=== PATIENT | male | born 1935 | race Caucasian/White ===

== ENCOUNTER 2022-08-01 14:00 | Observation (INO) | payer MEDICARE, SELFPAY ==
[2022-08-01 14:32] VITALS: BP 123/44; PULSE 86; RESP 18; TEMP 36.7; O2SAT 98; BMI 29.4
--- NOTE | 2022-08-01 14:51 | XR_ITS ---
PROCEDURE INFORMATION: Exam: XR Left Shoulder Exam date and time: 08/01/2022 2:53 PM Age: 86 years old Clinical indication: Injury or trauma; Fall; Blunt trauma (contusions or hematomas); Shoulder; Left TECHNIQUE: Imaging protocol: Radiologic exam of the Left shoulder. Views: 2 or more views. COMPARISON: No relevant prior studies available. FINDINGS: Bones/joints: No acute cortical disruption identified. No fracture line identified. Elevation of humerus. Degenerative changes of the acromioclavicular and glenohumeral joints. Bony density normal. Soft tissues: Normal. Other findings: Visualized thorax unremarkable. IMPRESSION: No acute radiographic osseous findings. Elevated humerus. Query symptoms of rotator cuff tear.
--- NOTE | 2022-08-01 14:51 | XR_ITS ---
PROCEDURE INFORMATION: Exam: XR Left Hip Exam date and time: 08/01/2022 2:50 PM Age: 86 years old Clinical indication: Injury or trauma; Fall; Blunt trauma (contusions or hematomas); Left; Hip TECHNIQUE: Imaging protocol: Radiologic exam of the Left hip. Views: 2 or 3 views hip with pelvis when performed. COMPARISON: No relevant prior studies available. FINDINGS: Bones/joints: U no fracture identified. Mild degenerative changes of both hips. [id number] degenerative changes in visualized sacroiliac joints. Soft tissues: Unremarkable. IMPRESSION: No acute findings. Degenerative changes.
[2022-08-01 15:11] VITALS: BP 130/52; PULSE 70; RESP 18; O2SAT 96
[2022-08-01 15:30] VITALS: BP 121/64; PULSE 70; RESP 18; O2SAT 95
--- NOTE | 2022-08-01 17:03 | CT_ITS ---
PROCEDURE INFORMATION: Exam: CT Abdomen And Pelvis Without Contrast Exam date and time: 08/01/2022 8:41 PM Age: 86 years old Clinical indication: Abdominal pain; Additional info: Pain , fall TECHNIQUE: Imaging protocol: Computed tomography of the abdomen and pelvis without contrast. Radiation optimization: All CT scans at this facility use at least one of these dose optimization techniques: automated exposure control; mA and/or kV adjustment per patient size (includes targeted exams where dose is matched to clinical indication); or iterative reconstruction. COMPARISON: CR XR HIP LT 2-3V W/PELVIS 08/01/2022 2:50 PM FINDINGS: Tubes, catheters and devices: None noted. Lungs: Lung bases appear clear. Heart: Pacemaker in good position. No significant coronary calcifications. No cardiomegaly. No significant pericardial effusion. Liver: Normal. No mass. Gallbladder and bile ducts: Normal. No calcified stones. No ductal dilation. Pancreas: Chronic pancreatitis. No ductal dilation. Spleen: Normal. No splenomegaly. Adrenal glands: Normal. No mass. Kidneys and ureters: Normal. No hydronephrosis. Stomach and bowel: Duodenal diverticulum. No obstruction. No mucosal thickening. Appendix: No evidence of appendicitis. Intraperitoneal space: Unremarkable. No free air. No significant fluid collection. Retroperitoneal space: No significant retroperitoneal inflammatory changes are noted. Vasculature: Unremarkable. No abdominal aortic aneurysm. Lymph nodes: Unremarkable. No enlarged lymph nodes. Urinary bladder: Unremarkable as visualized. Reproductive: Unremarkable as visualized. Bones/joints: Lumbar degenerative discs. No acute fracture. Soft tissues: Unremarkable. IMPRESSION: Chronic pancreatitis. Duodenal diverticulum.
--- NOTE | 2022-08-01 17:03 | CT_ITS ---
PROCEDURE INFORMATION: Exam: CT Head Without Contrast Exam date and time: 08/01/2022 8:32 PM Age: 86 years old Clinical indication: Injury or trauma; Fall TECHNIQUE: Imaging protocol: Computed tomography of the head without contrast. Radiation optimization: All CT scans at this facility use at least one of these dose optimization techniques: automated exposure control; mA and/or kV adjustment per patient size (includes targeted exams where dose is matched to clinical indication); or iterative reconstruction. COMPARISON: No relevant prior studies available. FINDINGS: Brain: Atrophy and chronic small vessel ischemic changes. No hemorrhage. No mass effect or midline shift. Chronic bilateral basal ganglia lacunar infarcts. Cerebral ventricles: No ventriculomegaly. Paranasal sinuses: Visualized sinuses are unremarkable. No fluid levels. Mastoid air cells: Visualized mastoid air cells are well aerated. Bones/joints: Chronic appearing left nasal bone fracture. No acute fracture. Soft tissues: Tiny metallic focus within the right cheek. IMPRESSION: Chronic changes in the brain but no acute intracranial abnormality.
--- NOTE | 2022-08-01 17:03 | CT_ITS ---
PROCEDURE INFORMATION: Exam: CT Chest Without Contrast; Diagnostic Exam date and time: 08/01/2022 8:39 PM Age: 86 years old Clinical indication: Injury or trauma; Fall; Additional info: Syncope, crackles TECHNIQUE: Imaging protocol: Diagnostic computed tomography of the chest without contrast. Radiation optimization: All CT scans at this facility use at least one of these dose optimization techniques: automated exposure control; mA and/or kV adjustment per patient size (includes targeted exams where dose is matched to clinical indication); or iterative reconstruction. COMPARISON: CT CERVICAL SPINE WO CON 08/01/2022 8:34 PM FINDINGS: Tubes, catheters and devices: Cardiac pacing device in the left chest wall. Lungs: Evaluation of the lungs is limited secondary to motion. Scattered ground-glass opacities. Pleural spaces: No pneumothorax. No pleural effusion. Heart: No cardiomegaly. No pericardial effusion. Coronary arteries: Coronary artery calcifications. Lymph nodes: No enlarged lymph nodes. Vasculature: Calcified atherosclerosis. No aneurysm. Gallbladder and bile ducts: Calcified gallstones. Pancreas: Pancreatic calcifications. Kidneys and ureters: Low-density right renal nodule measuring 15 mm. Bones/joints: Degenerative changes of the spine. No fracture. Median sternotomy wires. Soft tissues: Limited evaluation without contrast. No obvious soft tissue swelling. IMPRESSION: Evaluation of the lungs is limited secondary to motion. Scattered ground-glass opacities which may be hypoventilatory however pneumonitis or mild edema should be clinically excluded.
--- NOTE | 2022-08-01 17:03 | CT_ITS ---
PROCEDURE INFORMATION: Exam: CT Cervical Spine Without Contrast Exam date and time: 08/01/2022 8:34 PM Age: 86 years old Clinical indication: Pain; Other: Fall TECHNIQUE: Imaging protocol: Computed tomography of the cervical spine without contrast. Radiation optimization: All CT scans at this facility use at least one of these dose optimization techniques: automated exposure control; mA and/or kV adjustment per patient size (includes targeted exams where dose is matched to clinical indication); or iterative reconstruction. COMPARISON: CT HEAD/BRAIN WO CON 08/01/2022 8:32 PM FINDINGS: Bones/joints: No acute fracture. Normal alignment. Degenerative changes C2-C3: No significant disc protrusion. No severe spinal canal stenosis. No significant neural foraminal narrowing. C3-C4: No significant disc protrusion. No severe spinal canal stenosis. No significant neural foraminal narrowing. C4-C5: No significant disc protrusion. No severe spinal canal stenosis. No significant neural foraminal narrowing. C5-C6: No significant disc protrusion. No severe spinal canal stenosis. No significant neural foraminal narrowing. C6-C7: No significant disc protrusion. No severe spinal canal stenosis. No significant neural foraminal narrowing. C7-T1: No significant disc protrusion. No severe spinal canal stenosis. No significant neural foraminal narrowing. Lungs: Lung apices are normal. Soft tissues: Unremarkable. IMPRESSION: No acute traumatic findings.
--- NOTE | 2022-08-01 17:10 | ECG_ITS ---
APPROVED REPORT Exam: Resting ECG HR:69 bpm ECG Measurements Heart Rate 69 AXES WY 225 P 129 QRSd 157 QRS -47 QT 406 T 86 QTc 425 Conclusion ELECTRONIC ATRIAL PACEMAKER INTRAVENTRICULAR CONDUCTION DELAY [130+ ms QRS DURATION] LEFT VENTRICULAR HYPERTROPHY AND ST-T CHANGE [VOLTAGE CRITERIA PLUS ST/T ABNORMALITY] PROBABLE LATERAL MYOCARDIAL INFARCTION , OF INDETERMINATE AGE [35 ms Q WAVE IN I/aVL/V5/V6] ABNORMAL ECG UNCONFIRMED REPORT Electronically signed by : Kristian Dueñas MD 08/03/2022 20:20:55
--- NOTE | 2022-08-01 18:33 | HMH.EDGENADL ---
Discharge Plan Disposition Patient Disposition: Admitted as Observation Chief Complaint: Fall Clinical Impressions Clinical Impression: Syncope, Dementia, Fall, Abdominal pain, CRI (chronic renal insufficiency) Discharge ED Provider: Nacho Walls General Adult HPI <Tripp Rubi DO - Last Filed: 08/01/22 20:11> General Chief complaint: Fall Stated complaint: Fall@home 08/01 0100 LT shoulder/hip pain Time Seen by Provider: 08/01/22 16:30 Mode of Arrival: Ambulatory Source of Information: Patient and Spouse Limitations: No Limitations Description of Symptoms (Recalled from ER Triage Doc. by RN): c/o L shoulder/hip pain with abrasion on left shoulder/back. per family, pt was getting up after eating had explosive diarrhea, they put him in the shower, he had a second explosive diarrhea, the he got pale and fell down hitting his shower chair. Denies any loc or hitting his head. Son states that he caught his upper body and only his lower body hit the shower. History of Present Illness HPI narrative: 86yo M with past medical history of Alzheimer's, CAD status post CABG, pacemaker placement presents the emergency department secondary to syncopal event. Patient now lives with his family. Was eating breakfast and felt as though he had to use the restroom. Family reports he had explosive diarrhea on the way to the restroom. They placed him in the shower to clean him up he had another episode of explosive diarrhea. When drying him and moving about of the tub, he had a syncopal episode and was lowered to the ground by his family. No head strike or LOC. Patient does complain of feeling very weak and left shoulder pain from lying in the tub until additional family members were able to move him out of the tub, off of the floor. Related Data Home Medications Medication Instructions Recorded Confirmed apixaban 2.5 mg tablet (Eliquis) 2.5 mg PO BID Blood thinner 08/01/22 08/01/22 lansoprazole 30 mg capsule,delayed 30 mg PO DAILY GERD 08/01/22 08/01/22 release levothyroxine 50 mcg tablet 50 mcg PO DAILY thyorid 08/01/22 08/01/22 memantine 28 mg capsule 28 mg PO DAILY dementia 08/01/22 08/01/22 sprinkle,extended release 24hr olanzapine 5 mg tablet 5 mg PO HS mood 08/01/22 08/01/22 rosuvastatin 40 mg tablet 40 mg PO DAILY High cholesterol 08/01/22 08/01/22 sertraline 50 mg tablet 50 mg PO DAILY Depression 08/01/22 08/01/22 Allergies Allergy/AdvReac Type Severity Reaction Status Date / Time No Known Allergies Allergy Verified 08/01/22 14:50 PFSH <Tripp Rubi DO - Last Filed: 08/01/22 20:11> PFSH Disclaimer: The information contained in this section may have been updated after the patient was seen, as this information can be updated by other users. Social History (Updated 08/01/22 @ 20:11 by Tripp Rubi DO) Smoking Status: Former smoker alcohol intake: never current occupational status: previously employed Travel in the last 8 weeks: None <Tripp Rubi DO - Last Filed: 08/01/22 20:11> ROS Obtained: Yes Systems reviewed as appropriate & no additional complaints except as documented Physical Exam <Tripp Rubi DO - Last Filed: 08/01/22 20:11> General General appearance: alert and in no apparent distress Head Head exam: atraumatic Eye Eye exam: Present normal appearance Neck Neck exam: Present normal inspection, full ROM and trachea midline Chest Chest inspection: Present normal inspection Respiratory Respiratory exam: Present normal lung sounds bilaterally and other (Unilateral crackles); Absent respiratory distress Cardiovascular Cardiovascular exam: Present regular rate and normal rhythm Abdominal Exam Abdominal exam: Present soft and tenderness (Diffuse); Absent distention Back Exam Back exam: Present other (Abrasion left posterior shoulder) Neurological Exam Neurological exam: Present alert and CN II-XII intact Psychiatric Psychiatric exam: Present normal affect and normal mood Skin Skin exam: Pr
[2022-08-01 19:34] LABS: Coronavirus 19, PCR Not Detected (NotDetected); Influenza A, PCR Not Detected (NotDetected); Influenza B, PCR Not Detected (NotDetected)
--- NOTE | 2022-08-01 19:56 | PC.NURSE ---
Pt sitting up in wheelchair. Family at BS. No needs voiced at this time.
[2022-08-01 20:17] LABS: Basophils # 0.2 K/mm3 (0-0.2); Basophils % 1.2 % (0.1-2.0); Eosinophils # 0.2 K/mm3 (0.0-0.4); Eosinophils % 1.7 % (0.1-12.0); Hematocrit 33.8 % (42.0-52.0); Hemoglobin 10.8 g/dL (14.1-18.0); Lymphocytes # 2.6 K/mm3 (0.7-4.5); Lymphocytes % 18.7 % (10-50); Mean Corpuscular HGB Conc 32.1 g/dL (31.8-35.4); Mean Corpuscular Hemoglobin 29.9 pg (27.0-31.2); Mean Corpuscular Volume 92.9 fl (80-94); Mean Platelet Volume 9.7 fl (7.4-10.4); Monocytes # 0.9 K/mm3 (0.1-1.0); Monocytes % 6.6 % (1.7-9.3); Neutrophils # 9.9 K/mm3 (1.8-7.8); Neutrophils % 71.8 % (37.0-80.0); Platelet Count 220 K/mm3 (142-424); Red Blood Count 3.63 M/mm3 (4.60-6.20); Red Cell Distribution Width 16.3 % (11.5-17.5); White Blood Count 13.8 K/mm3 (4.8-10.8)
[2022-08-01 20:18] LABS: Potassium 5.5 mmoL/L (3.5-5.1); Sodium 143 mmol/L (136-145)
[2022-08-01 20:19] LABS: Chloride 111 mmol/L (98-107)
[2022-08-01 20:20] VITALS: BP 132/61; PULSE 57; O2SAT 95
[2022-08-01 20:20] LABS: Blood Urea Nitrogen 34 mg/dl (9-20); Creatinine Clearance Estimated 26 mL/min (50-200); Estimated Glomerular Filt Rate 22 ml/min (>60); GFR (African American) 26 ML/MIN (>60)
--- NOTE | 2022-08-01 20:20 | PC.NURSE ---
Pt advised he is still unable to provide a urine sample at this time.
[2022-08-01 20:21] LABS: Alanine Aminotransferase 19 U/L (12-78); Albumin Level 4.3 g/dl (3.5-5.0); Albumin/Globulin Ratio 1.4 (1.1-1.8); Alkaline Phosphatase 87 U/L (38-126); Anion Gap 15.5 mEq/L (5-15); Aspartate Amino Transferase 23 U/L (17-59); Bilirubin,Total 0.4 mg/dl (0.2-1.3); Calcium 8.4 mg/dl (8.4-10.2); Carbon Dioxide 22 mmol/L (22.0-30.0); Globulin 3.1 g/dL (1.3-3.2); Glucose 115 mg/dl (74-100); Total Protein,Serum 7.4 g/dl (6.3-8.2)
[2022-08-01 20:34] LABS: Troponin I < 0.01 ng/ml (0.00-0.034)
--- NOTE | 2022-08-01 22:26 | PC.NURSE ---
Pt attempted to give urine sample and was unable to
--- NOTE | 2022-08-01 22:45 | PC.NURSE ---
Dr. Walls at
--- NOTE | 2022-08-01 22:50 | PC.NURSE ---
Dr. Bueno at
--- NOTE | 2022-08-01 22:51 | PC.NURSE ---
Dr. Bueno pagefrances
--- NOTE | 2022-08-01 22:52 | PC.NURSE ---
Dr. Walls speaking with Dr. Bueno
--- NOTE | 2022-08-01 23:00 | PC.NURSE ---
left forearm iv infiltrated.
[2022-08-01 23:38] VITALS: BP 134/74; PULSE 68; RESP 18; TEMP 36.7; O2SAT 95
[2022-08-01 23:56] LABS: Troponin I < 0.01 ng/ml (0.00-0.034)
[2022-08-02] VITALS (9 sets, daily range): BP systolic 132–176; BP diastolic 49–72; PULSE 67–77; RESP 16–20; TEMP 36.5–37.3; O2SAT 92–96; BMI 28.9; BMI 28.8
--- NOTE | 2022-08-02 00:03 | PC.NURSE ---
Pt provided with more warm blankets
--- NOTE | 2022-08-02 00:16 | PC.NURSE ---
Pt arrived to floor via wheelchair @ 0014.
--- NOTE | 2022-08-02 05:17 | PC.NURSE ---
HAS RESTED WELL. FAMILY MEMBER JUST LEFT TO GO HOME. THERE HAS BEEN NO DIARRHEA SINCE ARRIVAL TO HOSPITAL. WEARS PULLUPS FOR INCONTINENCE B&B.
[2022-08-02 07:43] LABS: Basophils # 0.1 K/mm3 (0-0.2); Eosinophils # 0.6 K/mm3 (0.0-0.4); Eosinophils % 6.6 % (0.1-12.0); Hematocrit 30.7 % (42.0-52.0); Hemoglobin 9.8 g/dL (14.1-18.0); Lymphocytes # 2.6 K/mm3 (0.7-4.5); Lymphocytes % 26.1 % (10-50); Mean Corpuscular Hemoglobin 29.6 pg (27.0-31.2); Mean Corpuscular Volume 92.5 fl (80-94); Mean Platelet Volume 9.8 fl (7.4-10.4); Monocytes # 0.6 K/mm3 (0.1-1.0); Monocytes % 5.9 % (1.7-9.3); Neutrophils # 5.9 K/mm3 (1.8-7.8); Neutrophils % 60.5 % (37.0-80.0); Platelet Count 209 K/mm3 (142-424); Red Blood Count 3.31 M/mm3 (4.60-6.20); Red Cell Distribution Width 16.2 % (11.5-17.5); White Blood Count 9.8 K/mm3 (4.8-10.8)
[2022-08-02 07:54] LABS: Anion Gap 11.5 mEq/L (5-15); Blood Urea Nitrogen 34 mg/dl (9-20); Calcium 7.9 mg/dl (8.4-10.2); Carbon Dioxide 20 mmol/L (22.0-30.0); Chloride 114 mmol/L (98-107); Creatinine Clearance Estimated 31 mL/min (50-200); Estimated Glomerular Filt Rate 27 ml/min (>60); GFR (African American) 33 ML/MIN (>60); Glucose 89 mg/dl (74-100); Potassium 4.5 mmoL/L (3.5-5.1); Sodium 141 mmol/L (136-145)
[2022-08-02 08:17] LABS: Troponin I < 0.01 ng/ml (0.00-0.034)
--- NOTE | 2022-08-02 08:55 | EXP.HP ---
History of Present Illness *Admission Date: 08/01/22 *Reason for visit:: Dehydration/weakness/diarrhea *History of present illness: 86-year-old male, first admission to [facility] as he is recently moved to the area to live with his son as patient is suffering from increasing dementia and poor self-care activities. He established care in my office several months ago. He is in fairly good physical health and is fairly functional normally at home, simply needs guidance regarding daily activities and safety because of his memory loss. Yesterday morning he was eating breakfast with his son when he announced that he needed to go use the restroom. He quickly went to the restroom where he had explosive diarrhea and was incontinent of stool. This happened a couple of more times and then he became syncopal when he tried to stand up in the bathroom with the assistance of his son. He fell down and it took 2 folks to get him up into his wheelchair. He was brought to the emergency department where work-up ensued. X-rays of bony structures were negative. CT of head showed chronic changes. Labs revealed evidence of worsening renal function consistent with CHRISTINA superimposed on chronic kidney disease. He was admitted to hospital for IV fluids and further testing. This morning he states he feels much better. He has not had further diarrheal stools. Of note his son notes that no one else at home has had GI type illnesses. They have had some scattered upper respiratory illnesses. He notes that normally his father is afflicted with a bit of constipation. [facility] Disclaimer: The information contained in this section may have been updated after the patient was seen, as this information can be updated by other users. Medical History (Updated 08/02/22 @ 08:59 by Kristian Dueñas MD) Alzheimer disease Atrial fibrillation Colon cancer History of cataract History of left heart catheterization (LHC) History of pacemaker History of stroke Hyperlipidemia Hypertension Hypothyroid Surgical History (Updated 08/02/22 @ 00:54 by Michelle Womack RN) History of colonoscopy Family History (Updated 08/02/22 @ 00:54 by Michelle Womack RN) Family history of hypertension Family history of myocardial infarction Family history of hyperlipidemia Social History (Updated 08/02/22 @ 00:54 by Michelle Womack RN) Smoking Status: Former smoker alcohol intake: never current occupational status: previously employed Travel in the last 8 weeks: None Review of Systems Review of Systems Review of systems:: pertinent systems reviewed and negative unless documented below Meds Home Medications and Allergies Home Medications Medication Instructions Recorded Confirmed Type apixaban 2.5 mg tablet (Eliquis) 2.5 mg PO BID Blood thinner 08/01/22 08/01/22 History lansoprazole 30 mg capsule,delayed 30 mg PO DAILY GERD 08/01/22 08/01/22 History release levothyroxine 50 mcg tablet 50 mcg PO DAILY thyorid 08/01/22 08/01/22 History memantine 28 mg capsule 28 mg PO DAILY dementia 08/01/22 08/01/22 History sprinkle,extended release 24hr olanzapine 5 mg tablet 5 mg PO HS mood 08/01/22 08/01/22 History rosuvastatin 40 mg tablet 40 mg PO DAILY High cholesterol 08/01/22 08/01/22 History sertraline 50 mg tablet 50 mg PO DAILY Depression 08/01/22 08/01/22 History New Prescriptions to Start Prescriptions: Allergies Allergy/AdvReac Type Severity Reaction Status Date / Time No Known Allergies Allergy Verified 08/01/22 14:50 Exam Data for Last 24 hours Vital signs and Labs for Last 24 Hours: Temp Pulse Resp BP Pulse Ox 98.0 F 70 20 168/70 H 93 L 08/02/22 07:23 08/02/22 07:23 08/02/22 07:23 08/02/22 07:23 08/02/22 07:23 Laboratory Results - last 24 hr 08/01/22 19:28: SARS-CoV-2 (PCR) Not detected, Influenza A Untype (PCR) Not detected, Influenza Type B (PCR) Not detected 08/01/22 20:00: WBC 13.8 H, RBC 3.63 L, Hgb 10.8 L
--- NOTE | 2022-08-02 17:23 | PC.NURSE ---
pt has been pleasant this shift. only alert to self. pt has been resting in bed all shift with family at bedside. son and daughter in law gave meds, sent to pharm to be packages and verified. meds given back to fam. no bm this shift cb within reach. family still at bedside. no concerns at this time.
[2022-08-03 03:52] VITALS: BP 144/61; PULSE 70; RESP 16; TEMP 36.9; O2SAT 96; BMI 28.7
[2022-08-03 05:58] LABS: Basophils # 0.1 K/mm3 (0-0.2); Basophils % 1.1 % (0.1-2.0); Eosinophils # 0.8 K/mm3 (0.0-0.4); Eosinophils % 8.8 % (0.1-12.0); Hemoglobin 9.3 g/dL (14.1-18.0); Lymphocytes # 2.6 K/mm3 (0.7-4.5); Mean Corpuscular HGB Conc 31.7 g/dL (31.8-35.4); Mean Corpuscular Hemoglobin 28.9 pg (27.0-31.2); Mean Corpuscular Volume 91.2 fl (80-94); Mean Platelet Volume 9.3 fl (7.4-10.4); Monocytes # 0.6 K/mm3 (0.1-1.0); Monocytes % 6.6 % (1.7-9.3); Neutrophils # 5.2 K/mm3 (1.8-7.8); Neutrophils % 55.4 % (37.0-80.0); Platelet Count 200 K/mm3 (142-424); Red Blood Count 3.21 M/mm3 (4.60-6.20); Red Cell Distribution Width 16.2 % (11.5-17.5); White Blood Count 9.4 K/mm3 (4.8-10.8)
[2022-08-03 05:59] LABS: Hematocrit 29.3 % (42.0-52.0)
[2022-08-03 06:13] LABS: Anion Gap 11.7 mEq/L (5-15); Blood Urea Nitrogen 33 mg/dl (9-20); Calcium 7.9 mg/dl (8.4-10.2); Carbon Dioxide 21 mmol/L (22.0-30.0); Chloride 114 mmol/L (98-107); Creatinine Clearance Estimated 37 mL/min (50-200); Estimated Glomerular Filt Rate 34 ml/min (>60); GFR (African American) 41 ML/MIN (>60); Glucose 86 mg/dl (74-100); Potassium 4.7 mmoL/L (3.5-5.1); Sodium 142 mmol/L (136-145)
--- NOTE | 2022-08-03 06:13 | PC.NURSE ---
Pt has been alert to person and pleasant t/o shift. Pt able to use urinal at beginning of shift but has been incontinent t/o night. No c/o voiced to staff. Bed alarm on for pt safety. Call light within reach
[2022-08-03 06:16] LABS: Microscopic, Urine URINE MICROSCOPIC (MICROSCOPIC)
[2022-08-03 06:38] LABS: Appearance,Urine CLEAR (Clear); Bilirubin,Urine Negative (Negative); Blood, Urine Negative (Negative); Color,Urine YELLOW (Yellow); Glucose,Urine (UA) Negative (Negative); Ketones,Urine Negative (Negative); Leukocyte Esterase,Urine Negative (Negative); Nitrate,Urine Negative (Negative); Protein,Urine Negative (Negative); Specific Gravity, Urine 1.025 (1.005-1.030); Urobilinogen,Urine 0.2 EU/dl (0.2)
[2022-08-03 07:00] LABS: Bacteria,Urine Trace /lpf; Squamous Epithelial Cell,Urine Occasional #/hpf (0-5); WBC,Urine Occasional #/hpf (0-3)
[2022-08-03 08:00] VITALS: BP 147/76; PULSE 72; RESP 18; TEMP 36.6; O2SAT 96
--- NOTE | 2022-08-03 08:30 | EXP.DC.SUM ---
General Admission date:: 08/02/22 Discharge date: 08/03/22 HPI HPI HPI: 86-year-old male, first admission to [facility] as he is recently moved to the area to live with his son as patient is suffering from increasing dementia and poor self-care activities. He established care in my office several months ago. He is in fairly good physical health and is fairly functional normally at home, simply needs guidance regarding daily activities and safety because of his memory loss. Yesterday morning he was eating breakfast with his son when he announced that he needed to go use the restroom. He quickly went to the restroom where he had explosive diarrhea and was incontinent of stool. This happened a couple of more times and then he became syncopal when he tried to stand up in the bathroom with the assistance of his son. He fell down and it took 2 folks to get him up into his wheelchair. He was brought to the emergency department where work-up ensued. X-rays of bony structures were negative. CT of head showed chronic changes. Labs revealed evidence of worsening renal function consistent with CHRISTINA superimposed on chronic kidney disease. He was admitted to hospital for IV fluids and further testing. This morning he states he feels much better. He has not had further diarrheal stools. Of note his son notes that no one else at home has had GI type illnesses. They have had some scattered upper respiratory illnesses. He notes that normally his father is afflicted with a bit of constipation. Hospital Course Hospital Course Hospital Course: Patient was admitted. IV fluids were given. His acute kidney injury superimposed on his chronic kidney disease resolved and his creatinine went back to normal. Electrolytes remained normal. His chronic anemia did not worsen. He had no further diarrhea. He was able to eat well yesterday and this morning. PT and OT will be consulted to see if home health will be of benefit for him. I believe this would be of help to him and his family given his weakness and some mobility issues. Otherwise will be discharged home on his regular medications. I believe this was an unknown infectious etiology diarrhea. I will see him back in 1 week for hospital follow-up. Otherwise no medication adjustments. Exam Data for Last 24 hours Vital signs and Labs for Last 24 Hours: Temp Pulse Resp BP Pulse Ox 97.9 F 72 18 147/76 H 96 08/03/22 08:00 08/03/22 08:00 08/03/22 08:00 08/03/22 08:00 08/03/22 08:00 Laboratory Results - last 24 hr 08/02/22 19:43: Urine Color Yellow, Urine Appearance Clear, Urine pH 5.0, Ur Specific [place] 1.025, Urine Protein Negative, Urine Glucose (UA) Negative, Urine Ketones Negative, Urine Blood Negative, Urine Nitrate Negative, Urine Bilirubin Negative, Urine Urobilinogen 0.2, Ur Leukocyte Esterase Negative, Urine RBC None, Urine WBC Occasional, Ur Squamous Epith Cells Occasional, Urine Bacteria Trace 08/03/22 05:41: WBC 9.4, RBC 3.21 L, Hgb 9.3 L, Hct 29.3 L, MCV 91.2, MCH 28.9, MCHC 31.7 L, RDW 16.2, Plt Count 200, MPV 9.3, Neut % (Auto) 55.4, Lymph % (Auto) 28.0, [place] % (Auto) 6.6, Eos % (Auto) 8.8, Baso % (Auto) 1.1, Neut # (Auto) 5.2, Lymph # (Auto) 2.6, [place] # (Auto) 0.6, Eos # (Auto) 0.8 H, Baso # (Auto) 0.1 08/03/22 05:41: Sodium 142, Potassium 4.7, Chloride 114 H, Carbon Dioxide 21 L, Anion Gap 11.7, BUN 33 H, Creatinine 1.90 H, Estimated Creat Clear 37, Estimated GFR 34 L, Est GFR ( Amer) 41 L D, Glucose 86, Calcium 7.9 L I & O for Last 24 hours: Intake & Output 07/31/22 08/01/22 08/02/22 08/03/22 11:59 11:59 11:59 11:59 Intake Total 277 / 277 2668 / 2668 Output Total 0 / 0 175 / 175 Balance 277 / 277 2493 / 2493 Weight 201 lb 12.802 oz 200 lb 9.6 oz Constitutional Constitutional: no acute distress *Routine HEENT Exam Head: Present normocephalic Eye: Present EOMI and PERRL ENT: Present mucous membranes moist *Routine Neck Exam Neck: P
--- NOTE | 2022-08-03 09:57 | HMH.PHAINT1 ---
Pharmacy Intervention Comments: Met with patient at bedside to [employer] travel counselor on discharge medications. Difficulty engaging patient r/t dementia. Provided patient with list of medications and instructed patient to have caregiver call with any questions or concerns. -Sima Rios, PharmD Candidate 2022
--- NOTE | 2022-08-03 10:01 | HMH.PTEV ---
Physical Therapy Evaluation Rehab PT IP Evaluation Start: 08/02/22 08:59 Freq: ONCE Status: Active Protocol: Document 08/03/22 09:00 SKYE (Rec: 08/03/22 10:01 [email or web address] [id number]) Subjective/History History History 86 yowm adm to [facility] with Syncope, diarrhea and has a hx of dementia. He lives with family, no steps to enter the home, and is generally independent with mobility while family has to assist with all ADLs due to the dementia. Subjective Subjective Pt reports no c/o this am, agrees to OOB activity. Rehab PT IP Eval Objective Appearance Patient Behavior Appropriate Patient Orientation Person,Month Difficulty following instructions none Speech Pattern Clear Ambulation Patient Able to Ambulate Yes Ambulation Observation IP General Gait Pattern Observation No Deviations/Normal Ambulation Distance (feet) 20 Ambulation Assistive Device None Ambulation Ability Independent Balance Ability to Arise Able, uses arms to help Sitting Balance Steady, safe Standing Balance Steady, wide stance Dynamic Sitting Balance Ability Good Dynamic Standing Balance Ability Good Transfers Bed Transfer Ability Independent Chair Transfer Ability Independent Sit to Stand Bed Transfer Ability Independent Sit to Stand Chair Transfer Ability Independent ROM All Extremities PT ROM Status WFL MMT All Extremities PT MMT WFL Rehab PT IP prob,goals,plan Problems Date of Evaluation: 08/03/22 Discharge Plan PT Discharge Plan Pt is currently independent with all mobility and is appropriate to return home once medically stable. Recommend home health therapy upon d/c. G -code Required No Eval Complexity Eval Charge Codes 91563 - Moderate Complexity PHYSICIAN CERTIFICATION: I certify the specified therapy services for Juan Luis Johnson are required, authorized, and reviewed every 30 days.
--- NOTE | 2022-08-03 10:46 | SW/DCPLANNER ---
Patient information/order has been faxed to [facility]. Nicol vásquez/ Fernando stated that patient information/order has been reviewed and services will begin tomorrow for this patient. Patient will discharge home later today.
--- NOTE | 2022-08-03 11:07 | HMH.OTEV ---
OT Inpatient Evaluation Rehab OT IP Evaluation Start: 08/02/22 08:59 Freq: ONCE Status: Active Protocol: Document 08/03/22 10:49 [facility] (Rec: 08/03/22 11:06 [facility] [id number]) Rehab OT IP Assessment Subjective History Pt oriented x 2 on arrival. Pt agreeable to engage in therapy evaluation. Pt was admitted on 08/01/22 due to Dehydration/weakness/diarrhea. Prior to being in the hosptial, pt lived with son. He did require assistance with some ADLs such as dressing and bathing. Pt was dependent upon family for completion of all IADLs. Pt did not use any type of AE during ambulation. Pt has a past medical history of: Alzheimer disease Atrial fibrillation Colon cancer History of cataract History of left heart catheterization (LHC) History of pacemaker History of stroke Hyperlipidemia Hypertension Hypothyroid Subjective I am feeling a lot better today. Objective Patient Orientation Person,Birthday Upper Extremity Gross ROM WFL Bed Mobility bed mobility-scooting,bed mobility - supine/sit,bed mobility - rolling Assist Level Independent Transfer Training Sit/Stand Transfer Assist Level Supervision/Stand by Chair Transfer Ability Supervision/Stand by Chair Transfer Technique Sit to/from Ambulatory Chair Transfer Assistive Devices None Lower Body Dressing Ability Standby Assistance Rehab OT IP prob,goals,plan Problems Date of Evaluation: 08/03/22 Rehab Potential Rehab Potential Innapropriate for Skilled Therapy Discharge Plan OT Discharge Plan Pt appears to be at baseline with functional transfers and ADL independence. Pt can return home with family assistance once medically
--- NOTE | 2022-08-04 12:38 | CARE MANAGER ---
I spoke with patient's son to discuss status post discharge of patient. He stated that patient is doing ok, no complaints or concerns to address. He was aware of f/u appt with Dr. Dueñas.
== END 2022-08-03 10:55 | disposition home health service (06) ==
LOC: ER 20:28 → 2ND 22:57
PROVIDERS: Family Medicine; Admitting Provider Internal Medicine Adolescent Medicine; Emergency Provider Emergency Medicine; PCP Internal Medicine Adolescent Medicine; Visit Provider Internal Medicine Adolescent Medicine
DX: R55 Syncope and collapse (principal); N18.32 Chronic kidney disease, stage 3b; E03.9 Hypothyroidism, unspecified; Z79.01 Long term (current) use of anticoagulants; Z79.899 Other long term (current) drug therapy; Z95.0 Presence of cardiac pacemaker; Z95.1 Presence of aortocoronary bypass graft; I25.10 Atherosclerotic heart disease of native coronary artery without angina pectoris; N17.9 Acute kidney failure, unspecified; I48.91 Unspecified atrial fibrillation; R19.7 Diarrhea, unspecified; I12.0 Hypertensive chronic kidney disease with stage 5 chronic kidney disease or end stage renal disease; E78.5 Hyperlipidemia, unspecified; G30.9 Alzheimer's disease, unspecified; F02.A0 Dementia in other diseases classified elsewhere, mild, without behavioral disturbance, psychotic disturbance, mood disturbance, and anxiety; Z85.038 Personal history of other malignant neoplasm of large intestine; W18.2XXA Fall in (into) shower or empty bathtub, initial encounter; Z91.81 History of falling; Y93.F1 Activity, caregiving, bathing; Y92.012 Bathroom of single-family (private) house as the place of occurrence of the external cause
CPT/HCPCS: G0378; 36415; 70450; 71250; 72125; 73030; 73502; 74176; 80048; 80053; 81001; 84484; 85025; 93005; 97162; 97165; 99285; C9803; U0003; U0005

== ENCOUNTER → 2022-08-31 13:58 | Outpatient (CLI) | payer MEDICARE, SELFPAY ==
--- NOTE | 2022-08-31 14:33 | XR_ITS ---
FINAL REPORT CLINICAL HISTORY: constipation FINDINGS: Flat and upright views of the abdomen were obtained. There is a nonobstructive bowel gas pattern. There is a moderate-large amount of retained stool. There is no free air. There is no abnormal calcification. There are degenerative changes in the spine. There are postoperative changes in the abdomen and pelvis. IMPRESSION: Nonobstructive bowel gas pattern. Moderate-large amount of retained stool. Reviewed, Interpreted and Dictated by Daniel Bell III, MD Transcribed by Vanita Valdez Authenticated and [facility]
[2022-08-31 15:22] LABS: Alanine Aminotransferase 26 U/L (12-78); Albumin Level 4.1 g/dl (3.5-5.0); Alkaline Phosphatase 97 U/L (38-126); Anion Gap 9.2 mEq/L (5-15); Aspartate Amino Transferase 29 U/L (17-59); Bilirubin,Direct 0.3 mg/dl (0.0-0.4); Bilirubin,Total 0.3 mg/dl (0.2-1.3); Blood Urea Nitrogen 33 mg/dl (9-20); Calcium 8.4 mg/dl (8.4-10.2); Carbon Dioxide 23 mmol/L (22.0-30.0); Chloride 114 mmol/L (98-107); Cholesterol 88 mg/dl (140-200); Estimated Glomerular Filt Rate 29 ml/min (>60); GFR (African American) 35 ML/MIN (>60); Glucose 108 mg/dl (74-100); HDL Cholesterol 43 mg/dl (40-60); Magnesium 2.4 mg/dl (1.6-2.3); Potassium 4.2 mmoL/L (3.5-5.1); Sodium 142 mmol/L (136-145); Total Protein,Serum 6.7 g/dl (6.3-8.2); Triglycerides 189 mg/dl (30-150); VLDL Cholesterol 38 mg/dL (0-40)
[2022-08-31 15:33] LABS: Direct LDL Cholesterol 30.61 mg/dL (100-129)
[2022-08-31 15:52] LABS: Basophils # 0.1 K/mm3 (0-0.2); Basophils % 1.2 % (0.1-2.0); Eosinophils # 0.4 K/mm3 (0.0-0.4); Eosinophils % 4.4 % (0.1-12.0); Free T4 (Free Thyroxine) 1.02 ng/dl (0.78-2.19); Hematocrit 34.5 % (42.0-52.0); Hemoglobin 10.8 g/dL (14.1-18.0); Lymphocytes # 2.1 K/mm3 (0.7-4.5); Lymphocytes % 25.8 % (10-50); Mean Corpuscular HGB Conc 31.2 g/dL (31.8-35.4); Mean Corpuscular Hemoglobin 29.3 pg (27.0-31.2); Mean Corpuscular Volume 93.9 fl (80-94); Monocytes # 0.5 K/mm3 (0.1-1.0); Monocytes % 6.6 % (1.7-9.3); Platelet Count 188 K/mm3 (142-424); Red Blood Count 3.67 M/mm3 (4.60-6.20); Red Cell Distribution Width 16.4 % (11.5-17.5)
[2022-08-31 15:53] LABS: Thyroid Stimulating Hormone 2.12 uIU/mL (0.465-4.68)
== END ==
PROVIDERS: PCP Internal Medicine Adolescent Medicine; Visit Provider Internal Medicine
DX: E78.5 Hyperlipidemia, unspecified (principal); I10 Essential (primary) hypertension; I25.10 Atherosclerotic heart disease of native coronary artery without angina pectoris; I48.91 Unspecified atrial fibrillation; N18.32 Chronic kidney disease, stage 3b; N18.9 Chronic kidney disease, unspecified; R94.31 Abnormal electrocardiogram [ECG] [EKG]; Z86.73 Personal history of transient ischemic attack (TIA), and cerebral infarction without residual deficits; Z95.0 Presence of cardiac pacemaker; Z95.1 Presence of aortocoronary bypass graft; K59.00 Constipation, unspecified
CPT/HCPCS: 36415; 74019; 80048; 80061; 80076; 83735; 84439; 84443; 85025

== ENCOUNTER → 2022-09-15 11:54 | Outpatient (CLI) | payer MEDICARE, SELFPAY ==
--- NOTE | 2022-09-15 12:44 | CA_ITS ---
FINAL REPORT TECHNIQUE: Color Doppler, duplex Doppler and castrejon scale sonography of the bilateral neck arterial vasculature was performed. Velocities were measured in the carotid arteries. Stenosis evaluation based on the validated velocity criteria. CLINICAL HISTORY: DIZZINESS,EX SMOKER FINDINGS: The peak systolic velocity of the right common carotid artery is 93 cm/s. The peak systolic velocity of the right internal carotid artery is 231 cm/s and end diastolic velocity 27 cm/s. The ICA/CCA ratio is 4.0. A moderate amount of plaque is present. The right external carotid artery is patent. The right vertebral artery is patent with antegrade flow. The peak systolic velocity of the left common carotid artery is 97 cm/s. The peak systolic velocity of the left internal carotid artery is 114 cm/s and end diastolic velocity 34 cm/s. The ICA/CCA ratio is 1.2. A small amount of plaque is present. The left external carotid artery is patent.The left vertebral artery is patent with antegrade flow. IMPRESSION: Less than 50% carotid stenosis on the left. Greater than 70% stenosis on the right. Recommend CTA to further evaluate. Reviewed, Interpreted and Dictated by Daniel Bell III, MD Transcribed by Chante Nelson Authenticated and [facility]
== END ==
PROVIDERS: PCP Internal Medicine Adolescent Medicine; Visit Provider Nurse Practitioner Family
DX: E78.5 Hyperlipidemia, unspecified (principal); I10 Essential (primary) hypertension; I25.10 Atherosclerotic heart disease of native coronary artery without angina pectoris; I48.91 Unspecified atrial fibrillation; N18.32 Chronic kidney disease, stage 3b; R94.31 Abnormal electrocardiogram [ECG] [EKG]; Z86.73 Personal history of transient ischemic attack (TIA), and cerebral infarction without residual deficits; Z95.0 Presence of cardiac pacemaker; Z95.1 Presence of aortocoronary bypass graft
CPT/HCPCS: 78452; 93017; 93306; 93880; A9502; J2785

== ENCOUNTER 2022-09-25 08:41 | Day surgery (SDC) | payer MEDICARE, SELFPAY ==
[2022-09-25] VITALS (20 sets, daily range): BP systolic 144–185; BP diastolic 49–82; PULSE 60–70; RESP 18–20; O2SAT 93–98; BMI 28.8
--- NOTE | 2022-09-25 07:07 | IR_ITS ---
APPROVED REPORT Patient Location: Outpatient Medical Reception: BRY Menon RT (R) PROCEDURES Selective coronary angiogram Selective engagement of left internal mammary artery to the LAD Selective engage in saphenous vein graft to the right coronary Selective right internal carotid artery angiography INDICATION Coronary artery disease, Angina pectoris, History of coronary bypass surgery, Abnormal Myoview, Abnormal carotid ultrasound, Carotid artery stenosis Informed consent was obtained prior to the procedure. COMPLICATIONS None Estimated Blood Loss: Less than 10 mls TECHNIQUE One percent lidocaine was used to anesthetize the right groin. The right femoral artery was accessed via the Seldinger technique. A 4-Nepali sheath was placed in the right femoral artery. The JL-4 and JR-4 catheter was also used to perform selective coronary angiography as well as selective engage the left internal mammary artery and selective gauging of the saphenous vein graft to the right coronary. The JR4 catheter was then placed in the right internal carotid artery where selective angiography was performed. At the end the procedure the apparatus was removed the sheath was removed and hemostasis achieved using manual pressure patient was transferred to the postop putting in stable condition ANGIOGRAPHIC RESULTS The left main artery Normal The left anterior descending artery Is patent in the proximal segment and then occluded after the first diagonal artery. The circumflex artery Probably a codominant vessel and patent with diffuse 20 and 30% atheromatous plaque The right coronary artery Is probably codominant and stenosed at 40 to 50% in the proximal mid segment with a distal 90% stenosis The BAJWA ventriculogram reveals Not performed The left ventricular end-diastolic pressure Not measured GAUTHIER to LAD widely patent Saphenous vein graft to right coronary artery is patent but small caliber Right common carotid artery has a distal 70% stenosis while the internal carotid artery has a proximal smooth 70 to 80% stenosis IMPRESSION Adequate coronary artery revascularization as described above Moderate to severe right internal carotid artery stenosis in an asymptomatic patient A total of 12 cc of contrast was used for the entire diagnostic angiogram PLAN 1. LDL less than 55 to be achieved with high intensity statin 2. Risk factor modification for both coronary and carotid disease 3. Consider Xarelto 2.5 twice daily plus aspirin 81 mg daily for stroke prevention Electronically signed by : Galo Trivedi MD 09/25/2022 11:05:12
[2022-09-25 09:37] LABS: Basophils # 0.2 K/mm3 (0-0.2); Eosinophils # 0.5 K/mm3 (0.0-0.4); Hematocrit 35.4 % (42.0-52.0); Hemoglobin 11.3 g/dL (14.1-18.0); Lymphocytes # 3.1 K/mm3 (0.7-4.5); Lymphocytes % 41.9 % (10-50); Mean Corpuscular HGB Conc 31.9 g/dL (31.8-35.4); Mean Corpuscular Hemoglobin 29.4 pg (27.0-31.2); Mean Corpuscular Volume 92.3 fl (80-94); Mean Platelet Volume 9.7 fl (7.4-10.4); Monocytes # 0.5 K/mm3 (0.1-1.0); Monocytes % 6.6 % (1.7-9.3); Neutrophils # 3.2 K/mm3 (1.8-7.8); Neutrophils % 42.5 % (37.0-80.0); Platelet Count 225 K/mm3 (142-424); Red Blood Count 3.84 M/mm3 (4.60-6.20); Red Cell Distribution Width 15.5 % (11.5-17.5); White Blood Count 7.5 K/mm3 (4.8-10.8)
[2022-09-25 10:00] LABS: Anion Gap 15.9 mEq/L (5-15); Blood Urea Nitrogen 28 mg/dl (9-20); Calcium 8.5 mg/dl (8.4-10.2); Carbon Dioxide 19 mmol/L (22.0-30.0); Chloride 112 mmol/L (98-107); Creatinine Clearance Estimated 34 mL/min (50-200); Estimated Glomerular Filt Rate 30 ml/min (>60); GFR (African American) 37 ML/MIN (>60); Glucose 92 mg/dl (74-100); Potassium 3.9 mmoL/L (3.5-5.1); Sodium 143 mmol/L (136-145)
== END 2022-09-25 13:04 | disposition home or self-care (01) ==
PROVIDERS: PCP Internal Medicine Adolescent Medicine; Visit Provider Internal Medicine
DX: I25.10 Atherosclerotic heart disease of native coronary artery without angina pectoris (principal); I48.91 Unspecified atrial fibrillation; I12.9 Hypertensive chronic kidney disease with stage 1 through stage 4 chronic kidney disease, or unspecified chronic kidney disease; E03.9 Hypothyroidism, unspecified; Z79.01 Long term (current) use of anticoagulants; Z95.0 Presence of cardiac pacemaker; Z95.1 Presence of aortocoronary bypass graft; Z79.899 Other long term (current) drug therapy; Z86.73 Personal history of transient ischemic attack (TIA), and cerebral infarction without residual deficits; N18.32 Chronic kidney disease, stage 3b; I65.21 Occlusion and stenosis of right carotid artery
CPT/HCPCS: 36224; 80048; 85025; 93455; 99152; C1725; J1644; Q9967

== ENCOUNTER 2022-11-02 15:43 | Emergency (ER) | payer MEDICARE, SELFPAY ==
--- NOTE | 2022-11-02 15:46 | ECG_ITS ---
APPROVED REPORT Exam: Resting ECG HR:70 bpm ECG Measurements Heart Rate 70 AXES WV 236 P 137 QRSd 164 QRS -47 QT 449 T 116 QTc 470 Conclusion ELECTRONIC ATRIAL PACEMAKER INTRAVENTRICULAR CONDUCTION DELAY [130+ ms QRS DURATION] LEFT VENTRICULAR HYPERTROPHY AND ST-T CHANGE [VOLTAGE CRITERIA PLUS ST/T ABNORMALITY] LATERAL MYOCARDIAL INFARCTION , OF INDETERMINATE AGE [40+ ms Q WAVE AND/OR ST/T ABNORMALITY IN I/aVL/V5/V6] ABNORMAL ECG UNCONFIRMED REPORT Electronically signed by : Kristian Dueñas MD 11/03/2022 19:37:41
[2022-11-02 16:03] VITALS: BP 149/54; PULSE 70; RESP 16; TEMP 36.6; O2SAT 99; BMI 26.6
--- NOTE | 2022-11-02 16:10 | XR_ITS ---
FINAL REPORT CLINICAL HISTORY: sob FINDINGS: There is a left subclavian pacemaker. Cardiomegaly is noted. There has been prior median sternotomy. There is no acute cardiopulmonary process. There is no pleural effusion. There is no pneumothorax. The bony thorax is intact. IMPRESSION: No acute cardiopulmonary process. Reviewed, Interpreted and Dictated by Daniel Bell III, MD Transcribed by Robert Lopez Authenticated and [facility]
[2022-11-02 16:22] LABS: Basophils # 0.1 K/mm3 (0-0.2); Basophils % 1.1 % (0.1-2.0); Eosinophils # 0.4 K/mm3 (0.0-0.4); Eosinophils % 5.5 % (0.1-12.0); Hematocrit 34.6 % (42.0-52.0); Hemoglobin 10.7 g/dL (14.1-18.0); Lymphocytes % 29.3 % (10-50); Mean Corpuscular HGB Conc 30.9 g/dL (31.8-35.4); Mean Corpuscular Volume 93.8 fl (80-94); Mean Platelet Volume 8.9 fl (7.4-10.4); Monocytes # 0.3 K/mm3 (0.1-1.0); Monocytes % 3.9 % (1.7-9.3); Neutrophils # 4.1 K/mm3 (1.8-7.8); Neutrophils % 60.2 % (37.0-80.0); Platelet Count 229 K/mm3 (142-424); Red Blood Count 3.68 M/mm3 (4.60-6.20); White Blood Count 6.8 K/mm3 (4.8-10.8)
[2022-11-02 16:28] LABS: Chloride 112 mmol/L (98-107); Potassium 4.2 mmoL/L (3.5-5.1); Sodium 143 mmol/L (136-145)
[2022-11-02 16:30] VITALS: BP 147/63; PULSE 71; O2SAT 92
[2022-11-02 16:31] LABS: Alanine Aminotransferase 18 U/L (12-78); Albumin Level 3.9 g/dl (3.5-5.0); Albumin/Globulin Ratio 1.4 (1.1-1.8); Alkaline Phosphatase 89 U/L (38-126); Anion Gap 11.2 mEq/L (5-15); Aspartate Amino Transferase 22 U/L (17-59); Bilirubin,Total 0.3 mg/dl (0.2-1.3); Blood Urea Nitrogen 32 mg/dl (9-20); Carbon Dioxide 24 mmol/L (22.0-30.0); Creatinine Clearance Estimated 27 mL/min (50-200); Estimated Glomerular Filt Rate 29 ml/min (>60); GFR (African American) 35 ML/MIN (>60); Globulin 2.7 g/dL (1.3-3.2); Total Protein,Serum 6.6 g/dl (6.3-8.2)
[2022-11-02 16:32] LABS: Calcium 8.3 mg/dl (8.4-10.2); Glucose 140 mg/dl (74-100)
--- NOTE | 2022-11-02 16:40 | HMH.EDGENADL ---
Discharge Plan Disposition Patient Disposition: Home, Self-Care Condition: Good Chief Complaint: Syncope Prescriptions Prescriptions: No Action levothyroxine 50 mcg Tablet 50 mcg PO DAILY lansoprazole 30 mg Capsule,Delayed Release(Dr/Ec) 30 mg PO HS sertraline 50 mg Tablet 50 mg PO DAILY rosuvastatin 40 mg Tablet 40 mg PO HS Eliquis 2.5 mg Tablet 2.5 mg PO BID memantine 28 mg Capsule,Sprinkle,Er 24hr 28 mg PO HS donepezil 10 mg tablet 10 mg PO HS Label Comments: TAKE 1 TABLET BY MOUTH ONCE DAILY AT BEDTIME aspirin 81 mg Tablet,Delayed Release (Dr/Ec) 81 mg PO HS docusate sodium 100 mg Capsule 200 mg PO HS mirtazapine 15 mg tablet 15 mg PO HS Label Comments: TAKE 1 TABLET BY MOUTH ONCE DAILY AT BEDTIME valsartan 80 mg Tablet 80 mg PO HS Referrals Follow up/Referrals: Kristian Dueñas MD [Primary Care Provider] - See instructions Clinical Impressions Clinical Impression: Near syncope Instructions Patient Instructions: DI for Syncope in Adults (Fainting), DI for Syncope in Children (Fainting) Discharge ED Provider: Tripp Rubi General Adult HPI General Chief complaint: Syncope Stated complaint: syncope Time Seen by Provider: 11/02/22 15:54 Mode of Arrival: EMS Source of Information: Patient and EMS Limitations: No Limitations Description of Symptoms (Recalled from ER Triage Doc. by RN): pt does have history of dementia. report obtained per EMS staff. EMS recieved call for pt passing out. pt was inside working on a bunk bed, the room was very hot. pt did not have LOC. pt states he just feels weak. History of Present Illness HPI narrative: 86yo M presents to the ER secondary to near syncope. Patient was helping his [id number] disassemble a bunk bed where he broke out in a sweat. Reports mild shortness of breath. Denies chest pain. States he had a similar episode in July for which he was admitted secondary to dehydration. No recent illness. No change in medication. Feels well at this time. Patient reports he has undergone stress test and heart catheterization since that time. No acute intervention undertaken. Related Data Home Medications Medication Instructions Recorded Confirmed apixaban 2.5 mg tablet (Eliquis) 2.5 mg PO BID Blood thinner 08/01/22 09/25/22 lansoprazole 30 mg capsule,delayed 30 mg PO HS GERD 08/01/22 09/25/22 release levothyroxine 50 mcg tablet 50 mcg PO DAILY thyorid 08/01/22 09/25/22 memantine 28 mg capsule 28 mg PO HS dementia 08/01/22 09/25/22 sprinkle,extended release 24hr rosuvastatin 40 mg tablet 40 mg PO HS High cholesterol 08/01/22 09/25/22 sertraline 50 mg tablet 50 mg PO DAILY Depression 08/01/22 09/25/22 aspirin 81 mg tablet,delayed 81 mg PO HS CIRCULATION 08/02/22 09/25/22 release docusate sodium 100 mg capsule 200 mg PO HS CONSTIPATION 08/02/22 09/25/22 donepezil 10 mg tablet 10 mg PO HS DEMENTIA 08/02/22 09/25/22 mirtazapine 15 mg tablet 15 mg PO HS SLEEP/MOOD 08/02/22 09/25/22 valsartan 80 mg tablet 80 mg PO HS BLOOD PRESSURE 08/02/22 09/25/22 Allergies Allergy/AdvReac Type Severity Reaction Status Date / Time No Known Allergies Allergy Verified 09/25/22 09:03 [facility] Disclaimer: The information contained in this section may have been updated after the patient was seen, as this information can be updated by other users. Medical History Abnormal cardiovascular stress test Abnormal electrocardiogram [ECG] [EKG] Alzheimer disease Arm numbness Atrial fibrillation Atypical angina Colon cancer Constipation Coronary artery disease History of cataract History of left heart catheterization (LHC) History of pacemaker History of stroke Hyperlipidemia Hypertension Hypothyroid SOB (shortness of breath) Stenosis of carotid artery Surgical History H
[2022-11-02 16:41] LABS: NT Pro Brain Natriuretic Pep. 504 pg/mL (0-450)
[2022-11-02 16:46] LABS: Troponin I < 0.01 ng/ml (0.00-0.034)
[2022-11-02 17:00] VITALS: BP 158/79; PULSE 71; RESP 18; O2SAT 95
[2022-11-02 17:17] VITALS: BP 158/79; PULSE 70; RESP 16; TEMP 36.6
== END 2022-11-02 17:18 | disposition home or self-care (01) ==
PROVIDERS: Emergency Provider Family Medicine; PCP Internal Medicine Adolescent Medicine
DX: R55 Syncope and collapse (principal); R06.02 Shortness of breath; Z87.891 Personal history of nicotine dependence
CPT/HCPCS: 71045; 80053; 83880; 84484; 85025; 93005; 99285

== ENCOUNTER 2023-01-11 13:14 | Emergency (ER) | payer MEDICARE, SELFPAY ==
[2023-01-11] VITALS (7 sets, daily range): BP systolic 123–157; BP diastolic 57–73; PULSE 69–72; RESP 16–18; TEMP 36.6–36.7; O2SAT 92–96; BMI 28.5
--- NOTE | 2023-01-11 13:19 | ECG_ITS ---
APPROVED REPORT Exam: Resting ECG HR:69 bpm ECG Measurements Heart Rate 69 AXES FL 236 P 150 QRSd 161 QRS -42 QT 425 T 103 QTc 445 Conclusion ELECTRONIC ATRIAL PACEMAKER LEFT AXIS DEVIATION [QRS AXIS < -30] RIGHT BUNDLE BRANCH BLOCK [120+ ms QRS DURATION, UPRIGHT V1, 40+ ms S IN I/aVL/V4/V5/V6] LEFT VENTRICULAR HYPERTROPHY AND ST-T CHANGE [VOLTAGE CRITERIA PLUS ST/T ABNORMALITY] ABNORMAL ECG UNCONFIRMED REPORT Electronically signed by : Kristian Dueñas MD 01/11/2023 19:34:36
[2023-01-11 13:42] LABS: Basophils # 0.1 K/mm3 (0-0.2); Basophils % 0.9 % (0.1-2.0); Eosinophils # 0.3 K/mm3 (0.0-0.4); Eosinophils % 4.4 % (0.1-12.0); Hematocrit 38.1 % (42.0-52.0); Hemoglobin 11.5 g/dL (14.1-18.0); Lymphocytes # 2.2 K/mm3 (0.7-4.5); Lymphocytes % 29.9 % (10-50); Mean Corpuscular HGB Conc 30.2 g/dL (31.8-35.4); Mean Corpuscular Hemoglobin 27.5 pg (27.0-31.2); Mean Corpuscular Volume 91.1 fl (80-94); Mean Platelet Volume 9.8 fl (7.4-10.4); Monocytes # 0.5 K/mm3 (0.1-1.0); Monocytes % 6.3 % (1.7-9.3); Neutrophils # 4.3 K/mm3 (1.8-7.8); Neutrophils % 58.4 % (37.0-80.0); Platelet Count 197 K/mm3 (142-424); Red Blood Count 4.19 M/mm3 (4.60-6.20); White Blood Count 7.4 K/mm3 (4.8-10.8)
--- NOTE | 2023-01-11 13:42 | XR_ITS ---
FINAL REPORT CLINICAL HISTORY: dyspnea COMPARISON: 11/02/2022 FINDINGS: SINGLE VIEW CHEST There is cardiomegaly present. The patient is status post median sternotomy. There is a left subclavian pacer present. The lungs are clear. There is no pneumothorax. IMPRESSION: No acute cardiopulmonary process. Reviewed, Interpreted and Dictated by Daniel Bell III, MD Transcribed by Fallon Freeman Authenticated and [facility]
[2023-01-11 13:43] LABS: Chloride 108 mmol/L (98-107); Sodium 143 mmol/L (136-145)
[2023-01-11 13:44] LABS: Potassium 4.3 mmoL/L (3.5-5.1)
--- NOTE | 2023-01-11 13:45 | HMH.EDGENADL ---
Discharge Plan Disposition Patient Disposition: Home, Self-Care Prescriptions Prescriptions: No Action levothyroxine 50 mcg Tablet 50 mcg PO DAILY lansoprazole 30 mg Capsule,Delayed Release(Dr/Ec) 30 mg PO HS sertraline 50 mg Tablet 50 mg PO DAILY rosuvastatin 40 mg Tablet 40 mg PO HS Eliquis 2.5 mg Tablet 2.5 mg PO BID memantine 28 mg Capsule,Sprinkle,Er 24hr 28 mg PO HS donepezil 10 mg tablet 10 mg PO HS Patient Comments: TAKE 1 TABLET BY MOUTH ONCE DAILY AT BEDTIME aspirin 81 mg Tablet,Delayed Release (Dr/Ec) 81 mg PO HS docusate sodium 100 mg Capsule 200 mg PO HS mirtazapine 15 mg tablet 15 mg PO HS Patient Comments: TAKE 1 TABLET BY MOUTH ONCE DAILY AT BEDTIME valsartan 80 mg Tablet 80 mg PO HS tamsulosin 0.4 mg capsule 0.4 mg PO HS azelastine 137 mcg (0.1 %) aerosol,spray 2 spray INTRANASAL BID Patient Comments: USE 2 SPRAY(S) IN EACH NOSTRIL TWICE DAILY Referrals Follow up/Referrals: Ashia Baldwin APRN [Primary Care Provider] - See instructions Activity Restrictions/Add. Instructions Additional Instructions/Restrictions: Your emergency evaluation today did not yield any admittable diagnosis. However given your family members generalized weakness please continue to follow-up closely with your primary care doctor regarding these chronic abnormalities and return to the emergency part with any worsening new or different symptoms. I would advise you discuss with your primary care doctor [facility]. Clinical Impressions Clinical Impression: Generalized weakness Discharge ED Provider: Nelson Pierce General Adult HPI General Chief complaint: Weakness Stated complaint: Weakness, possibe dehydration Time Seen by Provider: 01/11/23 13:31 Mode of Arrival: Wheelchair Source of Information: Relative Limitations: No Limitations Description of Symptoms (Recalled from ER Triage Doc. by RN): 87 M presents with his son who reports over the last few days he has become increasingly weak and shakey. Son is worried for dehydration. Patient is a/o x3, GCS 15, and he reports he feels extremely weak! History of Present Illness HPI narrative: Patient is an 87-year-old male presenting today with profound weakness. He is accompanied by his son who is a primary historian but the patient is also able to answer my questions there is just some barrier due to difficulty with his hearing. His son states that over the last 4 days he has had just significant weakness particularly with exertion stating that even when he gets dressed he is very short of breath upon completion of that task. No exertional dyspnea that has led up to that. There have been no fevers or chills no cough no melena no hematochezia no abdominal pain chest pain or any other focal symptoms. Patient denies any other complaints other than chronic lower back pain which is unchanged from his baseline. He has a pacemaker but has not been diagnosed with heart failure and has not had any lower extremity edema PND orthopnea. No vomiting or diarrhea. His son states maybe he is more pale than normal. Related Data Home Medications Medication Instructions Recorded Confirmed apixaban 2.5 mg tablet (Eliquis) 2.5 mg PO BID Blood thinner 08/01/22 01/11/23 lansoprazole 30 mg capsule,delayed 30 mg PO HS Acid Reflux 08/01/22 01/11/23 release levothyroxine 50 mcg tablet 50 mcg PO DAILY Thyroid 08/01/22 01/11/23 memantine 28 mg capsule 28 mg PO HS Dementia 08/01/22 01/11/23 sprinkle,extended release 24hr rosuvastatin 40 mg tablet 40 mg PO HS High cholesterol 08/01/22 01/11/23 sertraline 50 mg tablet 50 mg PO DAILY Depression 08/01/22 01/11/23 aspirin 81 mg tablet,delayed 81 mg PO HS Heart Disease 08/02/22 01/11/23 release docusate sodium 100 mg capsule 200 mg PO HS Constipation 08/02/22 01/11/23 donepezil 10 mg tablet 10 mg PO HS Dementia 08/02/22 01/11/23 janene
[2023-01-11 13:46] LABS: Alanine Aminotransferase 22 U/L (12-78); Alkaline Phosphatase 87 U/L (38-126); Aspartate Amino Transferase 25 U/L (17-59); Bilirubin,Total 0.3 mg/dl (0.2-1.3); Blood Urea Nitrogen 32 mg/dl (9-20); Creatinine Clearance Estimated 24 mL/min (50-200); Estimated Glomerular Filt Rate 21 ml/min (>60); GFR (African American) 25 ML/MIN (>60)
[2023-01-11 13:47] LABS: Albumin Level 4.1 g/dl (3.5-5.0); Albumin/Globulin Ratio 1.5 (1.1-1.8); Anion Gap 16.3 mEq/L (5-15); Calcium 8.8 mg/dl (8.4-10.2); Carbon Dioxide 23 mmol/L (22.0-30.0); Globulin 2.8 g/dL (1.3-3.2); Glucose 98 mg/dl (74-100); Total Protein,Serum 6.9 g/dl (6.3-8.2)
--- NOTE | 2023-01-11 13:51 | PC.NURSE ---
rad at bedside for portable cxr
[2023-01-11 13:52] LABS: Magnesium 2.2 mg/dl (1.6-2.3); Phosphorous 3.3 mg/dl (2.5-4.5)
[2023-01-11 14:04] LABS: NT Pro Brain Natriuretic Pep. 835 pg/mL (0-450)
[2023-01-11 14:05] LABS: Troponin I < 0.01 ng/ml (0.00-0.034)
[2023-01-11 14:23] LABS: Thyroid Stimulating Hormone 2.23 uIU/mL (0.465-4.68)
--- NOTE | 2023-01-11 14:24 | PC.NURSE ---
ROUNDED ON PT HE STATED HE WAS COLD SO I GAVE PT A WARM BLANKET AND PT VISITOR RECEIVED A PEPSI, FAMILY AT BEDSIDE
--- NOTE | 2023-01-11 14:45 | PC.NURSE ---
Patient had 500mL LR bolus completed. Straight cath completed and patient had 100mL in bladder when drained
[2023-01-11 14:49] LABS: Microscopic, Urine URINE MICROSCOPIC (MICROSCOPIC)
[2023-01-11 15:12] LABS: Appearance,Urine CLEAR (Clear); Bilirubin,Urine Negative (Negative); Blood, Urine TRACE-I (Negative); Color,Urine YELLOW (Yellow); Glucose,Urine (UA) Negative (Negative); Ketones,Urine Negative (Negative); Leukocyte Esterase,Urine Negative (Negative); Nitrate,Urine Negative (Negative); Protein,Urine 1+ (Negative); Urobilinogen,Urine 0.2 EU/dl (0.2)
[2023-01-11 15:33] LABS: Bacteria,Urine Trace /lpf; RBC,Urine Occasional #/hpf (0-3)
== END 2023-01-11 16:00 | disposition home or self-care (01) ==
PROVIDERS: Emergency Provider Student in an Organized Health Care Education/Training Program; PCP Nurse Practitioner Family
DX: R53.1 Weakness (principal); R06.02 Shortness of breath; I48.91 Unspecified atrial fibrillation; I25.118 Atherosclerotic heart disease of native coronary artery with other forms of angina pectoris; I10 Essential (primary) hypertension; E78.5 Hyperlipidemia, unspecified; Z87.891 Personal history of nicotine dependence
CPT/HCPCS: 71045; 80053; 81001; 83735; 83880; 84100; 84443; 84484; 85025; 93005; 96360; 99285